=== PATIENT | female | born 1940 | race Caucasian/White ===

== ENCOUNTER → 2016-08-19 | Outpatient (CLI) | payer MEDICARE, BC | LOC: VAS 17:21 | DX: R01.1 Cardiac murmur, unspecified (principal) ==

== ENCOUNTER → 2016-08-28 | Outpatient (CLI) | payer MEDICARE, BC | LOC: RAD 08:53 | DX: Z13.820 Encounter for screening for osteoporosis (principal) ==

== ENCOUNTER 2018-08-28 14:30 | Outpatient (RCR) | payer MEDICARE, BC | END 2018-08-28 15:00 | disposition still patient (30) | LOC: PT 14:30 | DX: M54.5 Low back pain (principal); M25.552 Pain in left hip | CPT/HCPCS: G0283-GP ==

== ENCOUNTER → 2019-12-30 | Outpatient (CLI) | payer MEDICARE, BC | LOC: RAD 10:24 → MAMMO 10:45 | DX: Z13.820 Encounter for screening for osteoporosis (principal); Z78.0 Asymptomatic menopausal state ==

== ENCOUNTER 2020-01-28 13:00 | Outpatient (RCR) | payer MEDICARE, BC | END 2020-01-28 13:30 | disposition still patient (30) | LOC: OT 13:00 | DX: M65.30 Trigger finger, unspecified finger (principal) ==

== ENCOUNTER 2020-06-20 12:53 | Outpatient (RCR) | payer MEDICARE, BC | END 2020-07-25 17:00 | LOC: PT | DX: M25.512 Pain in left shoulder (principal); G89.29 Other chronic pain | CPT/HCPCS: G0283-GP ==

== ENCOUNTER → 2020-10-30 | Day surgery (SDC) | payer MEDICARE, BC ==
[~2020-10-30] MED LIST: HCTZ 25MG25 MG PO; LOSARTAN POTAS100 MG PO; MECLIZINE PO; NORVASC 10MG10 MG PO; SIMVASTATIN40 M1 PO; ZYLOPRIM 100MG100 MG PO
== END | disposition home or self-care (01) ==
LOC: EDSTATUS 07:24 → MSO 07:25
DX: Z12.11 Encounter for screening for malignant neoplasm of colon (principal); D12.0 Benign neoplasm of cecum; K57.30 Diverticulosis of large intestine without perforation or abscess without bleeding; E11.40 Type 2 diabetes mellitus with diabetic neuropathy, unspecified; I10 Essential (primary) hypertension; E78.5 Hyperlipidemia, unspecified; K21.9 Gastro-esophageal reflux disease without esophagitis; Z87.891 Personal history of nicotine dependence; Z79.899 Other long term (current) drug therapy
CPT/HCPCS: 00811; J2704; J7120

== ENCOUNTER 2021-04-07 10:01 | Emergency (ER) | payer MEDICARE, BC ==
[~2021-04-07] VITALS: Ht 154.9 cm; Wt 63.2 kg
[2021-04-07] MEDS ORDERED: HCTZ 25MG25 MG PO (10:17)
[2021-04-07] MEDS ORDERED: ZYLOPRIM 100MG100 MG PO (10:17)
[2021-04-07] MEDS ORDERED: LOSARTAN POTAS100 MG PO (10:17)
[2021-04-07] MEDS ORDERED: SIMVASTATIN40 M1 PO (10:17)
[2021-04-07] MEDS ORDERED: NORVASC 10MG10 MG PO (10:18)
[2021-04-07 11:06] LABS: BASO # 0.03 K/mm3 (0.02-0.10); EOS # 0.13 K/mm3 (0.04-0.40); EOS % 2.4 % (1.0-5.0); LYMPH# 0.79 K/mm3 (1.50-4.00); MEAN CELL VOLUME 92 fl (78-100); MEAN CORPUSCULAR HEMOGLOBIN 31 pg (27-31); MEAN CORPUSCULAR HGB CONC 33 g/dL (33-37); MEAN PLATELET VOLUME 10.1 fl (7.4-10.4); MONO # 0.39 K/mm3 (0.20-0.80); NEU # 4.14 K/mm3 (1.40-6.50); PLATELET COUNT 230 K/mm3 (130-400); RED BLOOD COUNT 3.58 M/mm3 (4.10-5.30); RED CELL DISTRIBUTION WIDTH 13.9 % (11.5-14.5); WHITE BLOOD COUNT 5.5 K/mm3 (4.8-10.8)
[2021-04-07 11:14] LABS: ALBUMIN 3.9 g/dL (3.4-4.8)
[2021-04-07 11:16] LABS: CALCIUM 9.8 mg/dL (8.3-10.5)
[2021-04-07 11:17] LABS: TOTAL PROTEIN 7.4 g/dL (6.2-8.1)
[2021-04-07 11:19] LABS: TOTAL BILIRUBIN 0.4 mg/dL (0.2-1.2)
[2021-04-07 11:24] LABS: URINE WBC 0 /hpf (0-3)
[2021-04-07 11:37] LABS: URINE APPEARANCE CLEAR; URINE BILIRUBIN NEGATIVE (NEGATIVE); URINE BLOOD NEGATIVE (NEGATIVE); URINE COLOR YELLOW; URINE GLUCOSE NEGATIVE (NEGATIVE); URINE KETONE NEGATIVE (NEGATIVE); URINE LEUKOCYTE ESTERASE NEGATIVE (NEGATIVE); URINE NITRATE NEGATIVE (NEGATIVE); URINE PROTEIN(semi-quant) NEGATIVE (NEGATIVE); URINE UROBILINOGEN NORMAL (NORMAL)
[2021-04-07] MEDS ORDERED: MECLIZINE PO (15:06)
[2021-04-07 15:24] VITALS: BP 144/60
== END 2021-04-07 15:30 | disposition home or self-care (01) ==
LOC: ED 10:01
PROVIDERS: Family Medicine
DX: R42 Dizziness and giddiness (principal); R53.83 Other fatigue; R53.81 Other malaise; I10 Essential (primary) hypertension; Z87.891 Personal history of nicotine dependence; Z20.822 Contact with and (suspected) exposure to COVID-19; Z79.899 Other long term (current) drug therapy
CPT/HCPCS: J7030

== ENCOUNTER → 2022-06-11 | Outpatient (CLI) | payer MEDICARE, BC | LOC: MAMMO 14:14 → RAD 14:14 → MAMMO 14:30 | DX: Z13.820 Encounter for screening for osteoporosis (principal); Z78.0 Asymptomatic menopausal state ==